=== PATIENT | female | born 1980 | race Caucasian/White ===

== ENCOUNTER → 2020-12-21 10:43 | Outpatient (CLI) | payer MEDICAID ==
[2020-12-21 12:02] LABS: ALBUMIN 3.8 g/dL (3.4-5.0); ANION GAP 12.6 mmol/L (8-16); BILIRUBIN - TOTAL 0.28 mg/dL (0.2-1.3); CALCIUM 9.2 mg/dL (8.5-10.1); CARBON DIOXIDE 26.2 mmol/L (21.0-32.0); CREATININE - SERUM 1.3 mg/dL (0.6-1.3); POTASSIUM - SERUM 3.8 mmol/L (3.5-5.1); PROTEIN - SERUM 7.4 g/dL (6.4-8.2)
== END | disposition home or self-care (01) ==
LOC: D.MRI 10:43
PROVIDERS: ATTEND Obstetrics & Gynecology
DX: D35.2 Benign neoplasm of pituitary gland (principal); N92.6 Irregular menstruation, unspecified